=== PATIENT | female | born 1945 | race Caucasian/White ===

== ENCOUNTER 2021-08-26 08:28 | Inpatient (IN) | payer MEDICARE ==
[2021-08-26] VITALS (7 sets, daily range): BP systolic 123–162; BP diastolic 64–85
[~2021-08-26] VITALS: Ht 154.9 cm; Wt 61.0 kg
[2021-08-26 09:00] LABS: BASO % 0.1 % (0.0-1.0); EOS # 0.3 10*3/uL (0.0-0.4); HEMATOCRIT 30.7 % (37.0-47.0); LYMPH # 0.7 10*3/uL (1.3-4.4); LYMPH % 4.3 % (27.0-41.0); MEAN CELL VOLUME 73.4 fl (81.0-99.0); MEAN CORPUSCULAR HGB 20.8 pg (27.0-31.0); MEAN CORPUSCULAR HGB CONC 28.3 g/dl (33.0-37.0); MEAN PLATELET VOLUME 9.5 fl (9.6-12.3); MONO # 0.7 10*3/uL (0.1-1.0); MONO % 4.3 % (3.0-9.0); NEUT # 14.3 10*3/uL (2.3-7.9); NEUT % 88.4 % (47.0-73.0); PLATELET COUNT AUTOMATED 378 10*3/uL (130-400); RED BLOOD COUNT 4.18 10*6/uL (4.10-5.10); RED CELL DISTRI WIDTH 22.2 % (0-14.5); WHITE BLOOD COUNT 16.2 10*3/uL (4.8-10.8)
[2021-08-26 09:16] LABS: ACT PARTIAL THROMBO TIME 34.8 SECONDS (20.0-32.1); INTERNATIONAL NORM RATIO 1.1 (2.0-3.5)
[2021-08-26 09:18] LABS: ALKALINE PHOSPHATASE 161 U/L (45-117); BUN 28 mg/dl (7-24); CHLORIDE 101 mmol/L (98-107); CREATININE 0.37 mg/dL (0.55-1.02); POTASSIUM 3.2 mmol/L (3.5-5.1); SGOT/AST 31 IU/L (3-35); SGPT/ALT 24 U/L (12-78); SODIUM 139 mmol/L (136-145); TOTAL PROTEIN 6.8 gm/dL (6.4-8.2)
[2021-08-26 10:39] LABS: BILIRUBIN Negative (Negative); BLOOD Negative (Negative); CLARITY Turbid (Clear); COLOR Yellow (Yellow); GLUCOSE Negative (Negative); KETONE Negative (Negative); LEUKO ESTERASE 3+ (Negative); NITRITE Positive (Negative)
[2021-08-26 10:46] LABS: PH >= 9.0 (4.5-8.0)
[2021-08-26 10:50] LABS: BACTERIA 4+; RBC 0-2 rbc/hpf (0-2); TRIP PHOS CRYSTALS 1+; WBC 21-30 wbc/hpf (0-5)
[2021-08-26] MEDS ORDERED: TYLENOL EXTRA500 MG GT (10:52)
[2021-08-26] MEDS ORDERED: ASPIRIN CHEWABL81 MG GT (10:52)
[2021-08-26] MEDS ORDERED: ELIQUIS5 M1 GT (10:52)
[2021-08-26] MEDS ORDERED: LIPITOR40 MG GT (10:53)
[2021-08-26] MEDS ORDERED: BISACODYL10 MG R (10:56)
[2021-08-26] MEDS ORDERED: BUSPIRONE HCL10 MG GT (10:57)
[2021-08-26] MEDS ORDERED: CELLCEPT200 MG/1 M GT (10:58)
[2021-08-26] MEDS ORDERED: CHLORHEXIDINE473 M1 PO (10:59)
[2021-08-26] MEDS ORDERED: [UNRECOGNIZED DRUG - OTHER] GT (11:01)
[2021-08-26] MEDS ORDERED: B-121000 MCG GT (11:03)
[2021-08-26] MEDS ORDERED: DICLO GEL1 EACH T (11:05)
[2021-08-26] MEDS ORDERED: FLEET ENEMA 13133 ML R (11:06)
[2021-08-26] MEDS ORDERED: LASIX20 MG GT (11:06)
[2021-08-26] MEDS ORDERED: HYDROXYZINE HCL25 MG GT (11:07)
[2021-08-26] MEDS ORDERED: LIDODERM1 EACH T (11:09)
[2021-08-26] MEDS ORDERED: LANSOPRAZOLE15 MG GT (11:09)
[2021-08-26] MEDS ORDERED: MAGNESIUM400 M1 GT (11:10)
[2021-08-26] MEDS ORDERED: REGLAN5 MG GT (11:12)
[2021-08-26] MEDS ORDERED: MELATONIN5 M7 GT (11:12)
[2021-08-26] MEDS ORDERED: Ipratropium Brom3 ML INH (11:13)
[2021-08-26] MEDS ORDERED: METOPROLOL TART75 MG GT (11:16)
[2021-08-26] MEDS ORDERED: OYSTER SHELL 21 EACH GT (11:19)
[2021-08-26] MEDS ORDERED: NATURE'S BLEND100 M2 GT (11:19)
[2021-08-26] MEDS ORDERED: XANAX0.5 MG GT (11:20)
[2021-08-26] MEDS ORDERED: ZOLOFT50 MG GT (11:21)
[2021-08-27] VITALS: BP 160/80
[2021-08-27 04:00] VITALS: BP 138/61
[2021-08-27 04:17] LABS: BASO % 0.2 % (0.0-1.0); EOS # 0.2 10*3/uL (0.0-0.4); EOS % 1.2 % (1.0-4.0); HEMATOCRIT 26.1 % (37.0-47.0); LYMPH # 0.7 10*3/uL (1.3-4.4); LYMPH % 5.4 % (27.0-41.0); MEAN CELL VOLUME 71.7 fl (81.0-99.0); MEAN CORPUSCULAR HGB 20.6 pg (27.0-31.0); MEAN CORPUSCULAR HGB CONC 28.7 g/dl (33.0-37.0); MEAN PLATELET VOLUME 9.5 fl (9.6-12.3); MONO % 8.3 % (3.0-9.0); NEUT # 10.3 10*3/uL (2.3-7.9); NEUT % 84.4 % (47.0-73.0); PLATELET COUNT AUTOMATED 291 10*3/uL (130-400); RED BLOOD COUNT 3.64 10*6/uL (4.10-5.10); WHITE BLOOD COUNT 12.2 10*3/uL (4.8-10.8)
[2021-08-27 04:32] LABS: ACT PARTIAL THROMBO TIME 37.6 SECONDS (20.0-32.1); INTERNATIONAL NORM RATIO 1.1 (2.0-3.5)
[2021-08-27 04:36] LABS: ALKALINE PHOSPHATASE 142 U/L (45-117); BUN 29 mg/dl (7-24); CHLORIDE 105 mmol/L (98-107); CHOLESTEROL 72 mg/dL (<200); CREATININE 0.28 mg/dL (0.55-1.02); LDL CHOLESTEROL 30 mg/dL (9-159); POTASSIUM 3.3 mmol/L (3.5-5.1); SGOT/AST 23 IU/L (3-35); SGPT/ALT 25 U/L (12-78); SODIUM 140 mmol/L (136-145); TOTAL PROTEIN 5.6 gm/dL (6.4-8.2); TRIGLYCERIDES 78 mg/dl (<150)
[2021-08-27 04:41] LABS: FREE T4 1.21 ng/dl (0.76-1.46); THYROID STIM HORMONE (HS) 0.489 uIU/ml (0.358-4.75)
[2021-08-27 08:00] VITALS: BP 146/59
[2021-08-27 12:00] VITALS: BP 149/69
[2021-08-27 16:00] VITALS: BP 149/70
[2021-08-27 20:00] VITALS: BP 150/66
[2021-08-28] VITALS: BP 123/75
[2021-08-28 04:00] VITALS: BP 118/77
[2021-08-28 04:54] LABS: BASO % 0.3 % (0.0-1.0); EOS # 0.2 10*3/uL (0.0-0.4); EOS % 1.7 % (1.0-4.0); HEMATOCRIT 26.9 % (37.0-47.0); LYMPH # 0.7 10*3/uL (1.3-4.4); LYMPH % 5.9 % (27.0-41.0); MEAN CELL VOLUME 72.3 fl (81.0-99.0); MEAN PLATELET VOLUME 9.7 fl (9.6-12.3); NEUT # 10.4 10*3/uL (2.3-7.9); NEUT % 83.7 % (47.0-73.0); PLATELET COUNT AUTOMATED 331 10*3/uL (130-400); RED BLOOD COUNT 3.72 10*6/uL (4.10-5.10); RED CELL DISTRI WIDTH 22.5 % (0-14.5); WHITE BLOOD COUNT 12.4 10*3/uL (4.8-10.8)
[2021-08-28 05:13] LABS: BUN 23 mg/dl (7-24); CHLORIDE 104 mmol/L (98-107); CREATININE 0.24 mg/dL (0.55-1.02); POTASSIUM 2.8 mmol/L (3.5-5.1); SODIUM 140 mmol/L (136-145)
[2021-08-28 08:00] VITALS: BP 156/58
[2021-08-28 12:00] VITALS: BP 120/61
[2021-08-28 16:00] VITALS: BP 164/74
[2021-08-28 20:00] VITALS: BP 154/58
[2021-08-29] VITALS: BP 135/66
[2021-08-29 04:00] VITALS: BP 153/54
[2021-08-29 05:25] LABS: BUN 14 mg/dl (7-24); CHLORIDE 104 mmol/L (98-107); CREATININE 0.18 mg/dL (0.55-1.02); SODIUM 141 mmol/L (136-145)
[2021-08-29 06:16] LABS: BASO % 0.3 % (0.0-1.0); EOS # 0.2 10*3/uL (0.0-0.4); EOS % 1.6 % (1.0-4.0); HEMATOCRIT 26.2 % (37.0-47.0); LYMPH # 0.7 10*3/uL (1.3-4.4); LYMPH % 6.2 % (27.0-41.0); MEAN CELL VOLUME 72.8 fl (81.0-99.0); MEAN CORPUSCULAR HGB 21.4 pg (27.0-31.0); MEAN CORPUSCULAR HGB CONC 29.4 g/dl (33.0-37.0); NEUT # 9.4 10*3/uL (2.3-7.9); NEUT % 82.5 % (47.0-73.0); PLATELET COUNT AUTOMATED 317 10*3/uL (130-400); RED CELL DISTRI WIDTH 22.5 % (0-14.5); WHITE BLOOD COUNT 11.4 10*3/uL (4.8-10.8)
[2021-08-29 08:00] VITALS: BP 199/88
[2021-08-29 12:00] VITALS: BP 151/62
[2021-08-29 15:49] LABS: BILIRUBIN Negative (Negative); BLOOD Negative (Negative); CLARITY Clear (Clear); COLOR Yellow (Yellow); GLUCOSE Negative (Negative); KETONE Trace (Negative); LEUKO ESTERASE Negative (Negative); NITRITE Negative (Negative); SPECIFIC GRAVITY 1.025 (1.001-1.030)
[2021-08-29 15:56] LABS: BACTERIA 2+
[2021-08-29 15:57] LABS: CALCIUM OXALATE CRYSTALS 1+
[2021-08-29 16:00] VITALS: BP 160/73
[2021-08-29 20:00] VITALS: BP 164/80
[2021-08-30] VITALS: BP 101/82
[2021-08-30 04:00] VITALS: BP 172/69
[2021-08-30 07:31] LABS: BASO % 0.3 % (0.0-1.0); EOS # 0.2 10*3/uL (0.0-0.4); EOS % 1.2 % (1.0-4.0); HEMATOCRIT 28.2 % (37.0-47.0); LYMPH # 0.5 10*3/uL (1.3-4.4); LYMPH % 4.1 % (27.0-41.0); MEAN CELL VOLUME 72.5 fl (81.0-99.0); MEAN CORPUSCULAR HGB 20.8 pg (27.0-31.0); MEAN CORPUSCULAR HGB CONC 28.7 g/dl (33.0-37.0); MEAN PLATELET VOLUME 9.1 fl (9.6-12.3); MONO # 1.1 10*3/uL (0.1-1.0); MONO % 8.2 % (3.0-9.0); NEUT % 85.7 % (47.0-73.0); PLATELET COUNT AUTOMATED 347 10*3/uL (130-400); RED BLOOD COUNT 3.89 10*6/uL (4.10-5.10); RED CELL DISTRI WIDTH 22.8 % (0-14.5); WHITE BLOOD COUNT 12.8 10*3/uL (4.8-10.8)
[2021-08-30 07:50] LABS: BUN 10 mg/dl (7-24); CHLORIDE 103 mmol/L (98-107); CREATININE 0.24 mg/dL (0.55-1.02); POTASSIUM 3.2 mmol/L (3.5-5.1); SODIUM 141 mmol/L (136-145)
[2021-08-30 08:00] VITALS: BP 186/75
[2021-08-30 12:00] VITALS: BP 172/71
[2021-08-30 16:00] VITALS: BP 182/81
[2021-08-30 20:00] VITALS: BP 163/64
[2021-08-31] VITALS: BP 148/58
[2021-08-31 04:00] VITALS: BP 156/68
[2021-08-31 04:06] LABS: BASO % 0.3 % (0.0-1.0); EOS # 0.3 10*3/uL (0.0-0.4); EOS % 2.2 % (1.0-4.0); HEMATOCRIT 28.8 % (37.0-47.0); LYMPH # 0.8 10*3/uL (1.3-4.4); LYMPH % 6.6 % (27.0-41.0); MEAN CORPUSCULAR HGB 21.1 pg (27.0-31.0); MEAN CORPUSCULAR HGB CONC 28.5 g/dl (33.0-37.0); MEAN PLATELET VOLUME 9.9 fl (9.6-12.3); MONO # 1.1 10*3/uL (0.1-1.0); MONO % 9.2 % (3.0-9.0); NEUT # 9.4 10*3/uL (2.3-7.9); NEUT % 81.3 % (47.0-73.0); PLATELET COUNT AUTOMATED 378 10*3/uL (130-400); RED BLOOD COUNT 3.89 10*6/uL (4.10-5.10); WHITE BLOOD COUNT 11.6 10*3/uL (4.8-10.8)
[2021-08-31 04:38] LABS: BUN 9 mg/dl (7-24); CHLORIDE 103 mmol/L (98-107); CREATININE 0.23 mg/dL (0.55-1.02); POTASSIUM 3.3 mmol/L (3.5-5.1); SODIUM 139 mmol/L (136-145)
[2021-08-31 08:00] VITALS: BP 160/61
[2021-08-31 12:00] VITALS: BP 141/68
[2021-08-31 16:00] VITALS: BP 155/77
[2021-08-31 20:00] VITALS: BP 181/73
[2021-09-01] VITALS: BP 139/67
[2021-09-01 04:00] VITALS: BP 140/77
[2021-09-01 04:43] LABS: BUN 9 mg/dl (7-24); CHLORIDE 102 mmol/L (98-107); CREATININE 0.18 mg/dL (0.55-1.02); POTASSIUM 3.5 mmol/L (3.5-5.1); SODIUM 141 mmol/L (136-145)
[2021-09-01 06:12] LABS: BASO % 0.2 % (0.0-1.0); EOS # 0.2 10*3/uL (0.0-0.4); EOS % 1.6 % (1.0-4.0); HEMATOCRIT 27.8 % (37.0-47.0); LYMPH # 0.7 10*3/uL (1.3-4.4); LYMPH % 4.9 % (27.0-41.0); MEAN CELL VOLUME 73.9 fl (81.0-99.0); MEAN CORPUSCULAR HGB 20.7 pg (27.0-31.0); MEAN CORPUSCULAR HGB CONC 28.1 g/dl (33.0-37.0); MEAN PLATELET VOLUME 9.7 fl (9.6-12.3); MONO # 0.9 10*3/uL (0.1-1.0); MONO % 6.8 % (3.0-9.0); NEUT # 11.6 10*3/uL (2.3-7.9); NEUT % 86.1 % (47.0-73.0); PLATELET COUNT AUTOMATED 450 10*3/uL (130-400); RED BLOOD COUNT 3.76 10*6/uL (4.10-5.10); RED CELL DISTRI WIDTH 23.2 % (0-14.5); WHITE BLOOD COUNT 13.5 10*3/uL (4.8-10.8)
[2021-09-01 08:00] VITALS: BP 174/48
[2021-09-01 11:56] VITALS: BP 154/68
[2021-09-01] MEDS ORDERED: LEVOFLOXACIN750 M2 PO (12:09)
[2021-09-01] MEDS ORDERED: CIPRO500 MG PO (15:00)
[2021-09-01 16:00] VITALS: BP 136/53
[2021-09-01 19:25] VITALS: BP 139/55
[2021-09-02] VITALS: BP 143/64
[2021-09-02 04:00] VITALS: BP 132/45
[2021-09-02 05:55] LABS: BUN 9 mg/dl (7-24); CHLORIDE 101 mmol/L (98-107); CREATININE 0.19 mg/dL (0.55-1.02); POTASSIUM 4.3 mmol/L (3.5-5.1); SODIUM 141 mmol/L (136-145)
[2021-09-02 06:38] LABS: BASO % 0.3 % (0.0-1.0); EOS # 0.2 10*3/uL (0.0-0.4); HEMATOCRIT 28.8 % (37.0-47.0); LYMPH # 0.9 10*3/uL (1.3-4.4); LYMPH % 7.4 % (27.0-41.0); MEAN CELL VOLUME 76.6 fl (81.0-99.0); MEAN CORPUSCULAR HGB CONC 27.4 g/dl (33.0-37.0); MEAN PLATELET VOLUME 9.8 fl (9.6-12.3); MONO # 1.1 10*3/uL (0.1-1.0); MONO % 9.2 % (3.0-9.0); NEUT # 9.5 10*3/uL (2.3-7.9); NEUT % 79.6 % (47.0-73.0); PLATELET COUNT AUTOMATED 500 10*3/uL (130-400); RED BLOOD COUNT 3.76 10*6/uL (4.10-5.10); RED CELL DISTRI WIDTH 23.4 % (0-14.5); WHITE BLOOD COUNT 11.9 10*3/uL (4.8-10.8)
[2021-09-02 08:00] VITALS: BP 124/53
[2021-09-02 11:49] VITALS: BP 138/51
[2021-09-02 16:00] VITALS: BP 107/81
[2021-09-02 20:00] VITALS: BP 130/58
[2021-09-03] VITALS: BP 130/58
[2021-09-03 04:00] VITALS: BP 174/75
[2021-09-03 04:19] LABS: BASO # 0.1 10*3/uL (0.0-0.1); BASO % 0.5 % (0.0-1.0); EOS # 0.5 10*3/uL (0.0-0.4); EOS % 4.7 % (1.0-4.0); HEMATOCRIT 31.7 % (37.0-47.0); LYMPH # 1.4 10*3/uL (1.3-4.4); LYMPH % 13.9 % (27.0-41.0); MEAN CELL VOLUME 76.2 fl (81.0-99.0); MEAN CORPUSCULAR HGB 20.9 pg (27.0-31.0); MEAN CORPUSCULAR HGB CONC 27.4 g/dl (33.0-37.0); MEAN PLATELET VOLUME 9.5 fl (9.6-12.3); MONO % 9.5 % (3.0-9.0); NEUT # 7.2 10*3/uL (2.3-7.9); NEUT % 70.8 % (47.0-73.0); PLATELET COUNT AUTOMATED 544 10*3/uL (130-400); RED BLOOD COUNT 4.16 10*6/uL (4.10-5.10); RED CELL DISTRI WIDTH 23.7 % (0-14.5); WHITE BLOOD COUNT 10.2 10*3/uL (4.8-10.8)
[2021-09-03 04:43] LABS: BUN 13 mg/dl (7-24); CHLORIDE 99 mmol/L (98-107); CREATININE 0.33 mg/dL (0.55-1.02); POTASSIUM 5.2 mmol/L (3.5-5.1); SODIUM 141 mmol/L (136-145)
[2021-09-03 08:00] VITALS: BP 113/62
[2021-09-03] MEDS ORDERED: PERCOCET 5-3251 EACH PO (11:20)
[2021-09-03 12:00] VITALS: BP 116/60
== END 2021-09-03 14:00 | DRG 870 ==
LOC: ED 08:28 → EDHOLD 09:31 → ICCU 09:31
PROVIDERS: Emergency Medicine; Internal Medicine; Internal Medicine Critical Care Medicine; Student in an Organized Health Care Education/Training Program; ADMIT Family Medicine; ATTEND Family Medicine
PROC: 5A1955Z Respiratory Ventilation, Greater than 96 Consecutive Hours (ICD-10-PCS; principal; 2021-08-26)
DX: A41.9 Sepsis, unspecified organism (principal); L89.153 Pressure ulcer of sacral region, stage 3; J18.9 Pneumonia, unspecified organism; E43 Unspecified severe protein-calorie malnutrition; J96.21 Acute and chronic respiratory failure with hypoxia; T83.511A Infection and inflammatory reaction due to indwelling urethral catheter, initial encounter; E87.2 Acidosis; Z16.24 Resistance to multiple antibiotics; Z99.11 Dependence on respirator [ventilator] status; R65.20 Severe sepsis without septic shock; E87.6 Hypokalemia; Z20.822 Contact with and (suspected) exposure to COVID-19; D50.9 Iron deficiency anemia, unspecified; I25.10 Atherosclerotic heart disease of native coronary artery without angina pectoris; I10 Essential (primary) hypertension; E78.00 Pure hypercholesterolemia, unspecified; E78.5 Hyperlipidemia, unspecified; R73.9 Hyperglycemia, unspecified; G70.00 Myasthenia gravis without (acute) exacerbation; J44.9 Chronic obstructive pulmonary disease, unspecified; S71.101A Unspecified open wound, right thigh, initial encounter; B95.2 Enterococcus as the cause of diseases classified elsewhere; M81.0 Age-related osteoporosis without current pathological fracture; S41.102A Unspecified open wound of left upper arm, initial encounter; X58.XXXA Exposure to other specified factors, initial encounter; Y93.89 Activity, other specified; Y92.89 Other specified places as the place of occurrence of the external cause; Y99.8 Other external cause status; Z88.6 Allergy status to analgesic agent; Z88.8 Allergy status to other drugs, medicaments and biological substances; Z93.0 Tracheostomy status; Z86.711 Personal history of pulmonary embolism; Z68.25 Body mass index [BMI] 25.0-25.9, adult

== ENCOUNTER 2021-09-07 00:14 | Emergency (ER) | payer MEDICARE ==
[~2021-09-07 00:14] MED LIST: ASPIRIN CHEWABL81 MG GT; B-121000 MCG GT; BISACODYL10 MG R; BUSPIRONE HCL10 MG GT; CELLCEPT200 MG/1 M GT; CHLORHEXIDINE473 M1 PO; CIPRO500 MG PO; DICLO GEL1 EACH T; ELIQUIS5 M1 GT; FLEET ENEMA 13133 ML R; HYDROXYZINE HCL25 MG GT; Ipratropium Brom3 ML INH; LANSOPRAZOLE15 MG GT; LASIX20 MG GT; LEVOFLOXACIN750 M2 PO; LIDODERM1 EACH T; LIPITOR40 MG GT; MAGNESIUM400 M1 GT; MELATONIN5 M7 GT; METOPROLOL TART75 MG GT; NATURE'S BLEND100 M2 GT; OYSTER SHELL 21 EACH GT; PERCOCET 5-3251 EACH PO; REGLAN5 MG GT; TYLENOL EXTRA500 MG GT; XANAX0.5 MG GT; ZOLOFT50 MG GT; [UNRECOGNIZED DRUG - OTHER] GT
== END 2021-09-07 04:33 ==
LOC: ED 00:14
DX: K94.23 Gastrostomy malfunction (principal); J44.9 Chronic obstructive pulmonary disease, unspecified; E78.5 Hyperlipidemia, unspecified; I10 Essential (primary) hypertension; I25.10 Atherosclerotic heart disease of native coronary artery without angina pectoris; Z79.899 Other long term (current) drug therapy

== ENCOUNTER 2021-09-14 10:20 | Emergency (ER) | payer MEDICARE ==
[~2021-09-14] VITALS: Wt 56.7 kg
[2021-09-14 11:23] LABS: BASO % 0.5 % (0.0-1.0); EOS # 0.3 10*3/uL (0.0-0.4); EOS % 4.3 % (1.0-4.0); HEMATOCRIT 30.4 % (37.0-47.0); LYMPH # 0.7 10*3/uL (1.3-4.4); LYMPH % 10.7 % (27.0-41.0); MEAN CELL VOLUME 75.2 fl (81.0-99.0); MEAN PLATELET VOLUME 9.7 fl (9.6-12.3); MONO # 0.7 10*3/uL (0.1-1.0); MONO % 11.3 % (3.0-9.0); NEUT # 4.6 10*3/uL (2.3-7.9); PLATELET COUNT AUTOMATED 406 10*3/uL (130-400); RED BLOOD COUNT 4.04 10*6/uL (4.10-5.10); RED CELL DISTRI WIDTH 23.3 % (0-14.5); WHITE BLOOD COUNT 6.3 10*3/uL (4.8-10.8)
[2021-09-14 11:39] LABS: ALKALINE PHOSPHATASE 221 U/L (45-117); BUN 24 mg/dl (7-24); CHLORIDE 98 mmol/L (98-107); CREATININE 0.41 mg/dL (0.55-1.02); POTASSIUM 4.2 mmol/L (3.5-5.1); SGOT/AST 20 IU/L (3-35); SGPT/ALT 13 U/L (12-78); SODIUM 135 mmol/L (136-145); TOTAL PROTEIN 7.8 gm/dL (6.4-8.2)
== END 2021-09-14 16:57 ==
LOC: ED 10:20
PROVIDERS: Internal Medicine
DX: J90 Pleural effusion, not elsewhere classified (principal); Z79.899 Other long term (current) drug therapy; Z79.82 Long term (current) use of aspirin

== ENCOUNTER 2021-12-01 12:53 | Emergency (ER) | payer MEDICARE ==
[~2021-12-01] VITALS: Wt 51.3 kg
[2021-12-01 13:22] LABS: BASO % 0.2 % (0.0-1.0); EOS # 0.1 10*3/uL (0.0-0.4); HEMATOCRIT 32.8 % (37.0-47.0); LYMPH % 18.6 % (27.0-41.0); MEAN CELL VOLUME 81.8 fl (81.0-99.0); MEAN CORPUSCULAR HGB 23.7 pg (27.0-31.0); MEAN PLATELET VOLUME 10.5 fl (9.6-12.3); MONO # 0.4 10*3/uL (0.1-1.0); MONO % 7.9 % (3.0-9.0); NEUT # 3.9 10*3/uL (2.3-7.9); NEUT % 71.1 % (47.0-73.0); PLATELET COUNT AUTOMATED 232 10*3/uL (130-400); RED BLOOD COUNT 4.01 10*6/uL (4.10-5.10); RED CELL DISTRI WIDTH 18.6 % (0-14.5); WHITE BLOOD COUNT 5.5 10*3/uL (4.8-10.8)
[2021-12-01 13:40] LABS: ALKALINE PHOSPHATASE 101 U/L (45-117); BUN 30 mg/dl (7-24); CHLORIDE 95 mmol/L (98-107); CREATININE 0.29 mg/dL (0.55-1.02); LIPASE 84 U/L (73-393); POTASSIUM 3.7 mmol/L (3.5-5.1); SGOT/AST 21 IU/L (3-35); SGPT/ALT 25 U/L (12-78); SODIUM 137 mmol/L (136-145); TOTAL PROTEIN 8.1 gm/dL (6.4-8.2)
== END 2021-12-01 15:20 ==
LOC: ED 12:53
PROVIDERS: Emergency Medicine
DX: K59.00 Constipation, unspecified (principal); K56.7 Ileus, unspecified; I25.10 Atherosclerotic heart disease of native coronary artery without angina pectoris; J44.9 Chronic obstructive pulmonary disease, unspecified; E78.5 Hyperlipidemia, unspecified; I10 Essential (primary) hypertension; M81.0 Age-related osteoporosis without current pathological fracture; Z79.899 Other long term (current) drug therapy; Z79.2 Long term (current) use of antibiotics; Z79.82 Long term (current) use of aspirin; Z93.0 Tracheostomy status